=== PATIENT | male | born 1975 | race Two or more races ===

== ENCOUNTER 2023-05-02 10:19 | Outpatient (CLI) | payer OTHER | END 2023-05-02 10:33 | disposition home or self-care (01) | LOC: RX STUDY 10:19 | PROVIDERS: ATTEND Internal Medicine Gastroenterology | DX: R10.84 Generalized abdominal pain (principal) ==

== ENCOUNTER 2023-05-07 11:43 | Outpatient (CLI) | payer OTHER | END 2023-05-07 11:45 | disposition home or self-care (01) | LOC: LAB 11:43 | PROVIDERS: ATTEND Internal Medicine Gastroenterology | DX: R10.13 Epigastric pain (principal) ==

== ENCOUNTER 2023-05-10 09:41 | Outpatient (CLI) | payer OTHER | END 2023-05-10 09:43 | disposition home or self-care (01) | LOC: LAB 09:41 | PROVIDERS: ATTEND Internal Medicine Gastroenterology | DX: R10.13 Epigastric pain (principal) ==

== ENCOUNTER → 2023-05-10 | Outpatient (CLI) | payer OTHER | END | disposition home or self-care (01) | LOC: SONOGRAMA 10:00 | PROVIDERS: ATTEND Internal Medicine Gastroenterology | DX: R10.84 Generalized abdominal pain (principal) ==